=== PATIENT | female | born 1995 | race Caucasian/White ===

== ENCOUNTER → 2017-02-02 | Outpatient (CLI) | payer OTHER ==
[2017-02-02 14:50] LABS: CH 31.1; CHCM 33.5; HCT 27.8 % (34.0-46.0); HDW 3.49; HGB 9.2 gm/dL (11.4-16.0); MCH 30.8 pg (25.0-35.0); MCV 93.3 fL (80.0-100.0); Mean Platelet Volume 7.1; Poikilocytosis Slight; RBC 2.98 m/uL (3.80-5.40); RDW 14.3 % (11.5-15.5); WBC 9.7 k/uL (4.0-11.0)
[2017-02-02 16:17] LABS: Glucose 77 mg/dL (74-99); Non-African American GFR(MDRD) >60 (>60 ml/min/1.73 sqM)
[2017-02-02 16:49] LABS: Hepatitis B Surface Ag Index 0.08
[2017-02-03 07:57] LABS: HIV-1/HIV-2 Ab Screen NONREAC (NON REAC)
== END | disposition home or self-care (01) ==
LOC: LABWHC1 14:16
PROVIDERS: ATTEND Obstetrics & Gynecology
DX: Z34.00 Encounter for supervision of normal first pregnancy, unspecified trimester (principal); Z3A.00 Weeks of gestation of pregnancy not specified
CPT/HCPCS: 36415; 82565; 82947; 85027; 86762; 86780; 86850; 86900; 86901; 87340; 87389

== ENCOUNTER → 2017-04-06 | Outpatient (CLI) | payer OTHER ==
[2017-04-06 09:14] LABS: CH 29.1; CHCM 32.2; HCT 29.2 % (34.0-46.0); HDW 3.05; HGB 9.3 gm/dL (11.4-16.0); Hypochromasia Slight; MCHC 31.9 g/dL (31.0-37.0); MCV 90.9 fL (80.0-100.0); Mean Platelet Volume 8.8; RBC 3.21 m/uL (3.80-5.40); RDW 15.8 % (11.5-15.5)
== END | disposition home or self-care (01) ==
LOC: LABWHC1 07:51
PROVIDERS: ATTEND Obstetrics & Gynecology
DX: Z34.02 Encounter for supervision of normal first pregnancy, second trimester (principal)
CPT/HCPCS: 36415; 82950; 85027

== ENCOUNTER 2017-06-19 02:38 | Inpatient (IN) | payer OTHER ==
[2017-06-19] MEDS ORDERED: CARBOPROST TROMETHAMINE 250 MCG/ML 1 ML AMP IM PRN (03:08)
[2017-06-19] MEDS ORDERED: AMPICILLIN 2,000 MG in SODIUM CHLORIDE 0.9% 100 ML IVPB STA (03:08)
[2017-06-19] MEDS ORDERED: METHYLERGONOVINE 0.2 MG/ML 1 ML AMP IM PRN (03:08)
[2017-06-19] MEDS ORDERED: OXYTOCIN 10 UNIT/ML 1 ML VIAL IM PRN (03:08)
[2017-06-19] MEDS ORDERED: LIDOCAINE 1% (PF) 10 MG/ML (30 ML SDV) SQ PRN (03:08)
[2017-06-19] MEDS ORDERED: TERBUTALINE 1 MG/ML VIAL SQ PRN (03:08)
[2017-06-19] MEDS ORDERED: BUTORPHANOL 1 MG/ML 1 ML VIAL IV PRN (03:10)
[2017-06-19] MEDS ORDERED: OXYTOCIN 20 UNITS/1000 ML NS 1,000 ML IV SCH (03:15)
[2017-06-19] MEDS: LACTATED RINGERS 1,000 ML IV SCH ×3 (03:27→07:57)
[2017-06-19 03:35] LABS: Anisocytosis Slight; Basophils % (A) 0 %; CH 30.9; CHCM 33.5; Eosinophils # (A) 0.1 k/uL (0-0.7); Eosinophils % (A) 1 %; HCT 33.5 % (34.0-46.0); HDW 2.84; HGB 11.1 gm/dL (11.4-16.0); Luc # (Auto) 0.18; Luc % (Auto) 2; Lymphocytes # (A) 1.8 k/uL (1.0-4.8); Lymphocytes % (A) 19 %; MCH 30.8 pg (25.0-35.0); MCHC 33.1 g/dL (31.0-37.0); MCV 92.9 fL (80.0-100.0); Mean Platelet Volume 7.8; Monocytes # (A) 0.5 k/uL (0-1.0); Monocytes % (A) 6 %; Neutrophils # (A) 6.8 k/uL (1.3-7.7); Neutrophils % (A) 73 %; RDW 17.4 % (11.5-15.5); WBC 9.4 k/uL (3.8-10.6); WBC (Perox) 9.95
[2017-06-19] MEDS ORDERED: fentaNYL (PF) 50 MCG/ML 5 ML AMP ONE (07:29)
[2017-06-19] MEDS ORDERED: SODIUM CHLORIDE 0.9% 100 ML BAG ONE (07:29)
[2017-06-19] MEDS ORDERED: BUPIVACAINE (PF) 0.25% 30 ML VIAL ONE (07:29)
[2017-06-19] MEDS: AMPICILLIN 1,000 MG in SODIUM CHLORIDE 0.9% 50 ML IVPB SCH ×2 (07:51→16:42)
[2017-06-19] MEDS ORDERED: BUPIVACAINE (PF) 0.25% 25 ML, fentaNYL (PF) 200 MCG in SODIUM CHLORIDE 0.9% 71 ML EPIDURAL ONE (08:07)
--- NOTE | 2017-06-19 08:34 | P.HPOB ---
History of Present Illness H&P Date: 06/19/17 Chief Complaint: Labor 22-year-old presents at 39 weeks and 2 days in labor. She is lorrie every few minutes. Her cervix is 2-3 cm dilated, 80% effaced, -2 station. heart tones are 120-125 with moderate variability and reactive. Review of Systems All systems: negative Constitutional: Denies chills, Denies fever Eyes: denies blurred vision, denies pain Ears, nose, mouth and throat: Denies headache, Denies sore throat Cardiovascular: Denies chest pain, Denies shortness of breath Respiratory: Denies cough Gastrointestinal: Denies abdominal pain, Denies diarrhea, Denies nausea, Denies vomiting Genitourinary: Denies dysuria, Denies hematuria Musculoskeletal: Denies myalgias Integumentary: Denies pruritus, Denies rash Neurological: Denies numbness, Denies weakness Psychiatric: Denies anxiety, Denies depression Endocrine: Denies fatigue, Denies weight change Past Medical History Additional Past Medical History / Comment(s): SCOLIOSIS, HX OF PASSING OUT., OCCASIONAL DIZZINESS, STATES CURRENTLY ON IRON SUPPLEMENT FOR ANEMIA. OB history: THis is her first and she has had care with me since 18 weeks. O+, abs neg, Rub Imm, Treponemal ab neg, HIV NR, Hep B neg, normal 1hr GTT, GBS +. History of Any Multi-Drug Resistant Organisms: None Reported Past Surgical History: No Surgical Hx Reported Past Anesthesia/Blood Transfusion Reactions: No Reported Reaction Additional Past Anesthesia/Blood Transfusion Reaction / Comment(s): has not ever had anesthesia Past Psychological History: ADD/ADHD, Depression Additional Psychological History / Comment(s): NO MEDS WHILE Smoking Status: Never smoker Past Alcohol Use History: None Reported Past Drug Use History: None Reported - Past Family History Mother Family Medical History: No Reported History Medications and Allergies Home Medications Medication Instructions Recorded Confirmed Type Pnv No.95/Ferrous Fum/Folic AC 1 each PO DAILY 06/14/17 06/19/17 History [ Multivitamin Tablet] Allergies Allergy/AdvReac Type Severity Reaction Status Date / Time No Known Allergies Allergy Verified 06/19/17 02:49 Exam Osteopathic Statement: *. No significant issues noted on an osteopathic structural exam other than those noted in the History and Physical/Consult. - Vital Signs Vital signs: Vital Signs Temp Pulse Resp BP 06/19/17 02:49 98.3 F 73 16 118/71 Intake and Output 06/18/17 06/19/17 06/19/17 22:59 06:59 14:59 Other: # Voids 1 Weight 105.233 kg Heart: Regular rate and rhythm Lungs: Clear to auscultation bilaterally Abdomen: Soft, nontender Extremities: Negative Homans sign Results Result Diagrams: 06/19/17 03:30 Abnormal Lab Results - Last 24 Hours (Table) 06/19/17 Range/Units 03:30 RBC 3.60 L (3.80-5.40) m/uL Hgb 11.1 L (11.4-16.0) gm/dL Hct 33.5 L (34.0-46.0) % RDW 17.4 H (11.5-15.5) % Assessment and Plan (1) Normal labor Status: Acute Plan: 1. Admit to labor and delivery 2. Ampicillin for GBS prophylaxis 3. Anticipate normal vaginal delivery
[2017-06-19] MEDS ORDERED: diphenhydrAMINE 50 MG CAP PO PRN (16:34)
[2017-06-19] MEDS ORDERED: ACETAMINOPHEN TAB 325 MG TAB PO PRN (16:34)
[2017-06-19] MEDS ORDERED: WITCH HAZEL 1 EACH MED..PAD TOPICAL PRN (16:34)
[2017-06-19] MEDS ORDERED: SIMETHICONE 80 MG CHEWABLE PO PRN (16:34)
[2017-06-19] MEDS ORDERED: Acetaminophen-Codeine 300-30mg TAB PO PRN ×2 (16:34)
[2017-06-19] MEDS ORDERED: IBUPROFEN 600 MG TAB PO PRN (16:34)
[2017-06-19] MEDS ORDERED: LANOLIN CREAM 5 GM TUBE TOPICAL PRN (16:34)
[2017-06-19] MEDS ORDERED: HYDROCORTISONE 2.5% RECTAL CREAM 30 GM TUBE RECTAL PRN (16:34)
[2017-06-19] MEDS ORDERED: ZOLPIDEM 5 MG TAB PO PRN (16:34)
[2017-06-19] MEDS ORDERED: BENZOCAINE/MENTHOL SPRAY 1 GM/SPRAY AEROSOL TOPICAL PRN (16:34)
[2017-06-19] MEDS ORDERED: diphenhydrAMINE 25 MG CAP PO PRN (16:34)
[2017-06-19] MEDS: SENNOSIDES-DOCUSATE SODIUM 1 EACH TAB PO SCH (20:13)
--- NOTE | 2017-06-20 05:52 | P.PROBDLV ---
Vaginal Delivery Note - . Vaginal Delivery Note: 22-year-old presented at 39 weeks and 2 days in labor. Her cervix was 2 cm dilated, 80% effaced, -2 station. She is lorrie irregularly every 2-4 minutes. heart tones 135-140 with moderate variability and reactive. Amniotomy was performed at 8 AM and thin meconium was noted. She was comfortable with an epidural at this time and 6 cm dilated. She progressed to complete at 8:58 AM. She then pushed, and delivered a viable female over intact perineum under epidural anesthesia at 9:16 AM. Head delivered OA, nuchal cord 1 easily reduced, anterior shoulder delivered gentle downward Rafael by posterior shoulder and rest of body. Nose and mouth bulb suctioned, cord clamped and cut, infant placed mother's abdomen. Apgars 8, 8, weight 8 pounds. Placenta delivered spontaneously, intact with three-vessel cord. The, perineum, cervix was inspected. First-degree perineal and left labial laceration were repaired with 3-0 Vicryl. Estimated blood loss 200 mL. Mother and baby in stable condition.
--- NOTE | 2017-06-20 06:43 | P.DS ---
Providers Date of admission: 06/19/17 02:38 Expected date of discharge: 06/20/17 Attending physician: Maria E Chao Primary care physician: Stated None - Discharge Diagnosis(es) (1) Normal labor Current Visit: Yes Status: Resolved (2) Normal vaginal delivery Current Visit: Yes Status: Acute Hospital Course: Pt presented in active labor. She underwent a normal vaginal delivery. Post course was uncomplicated. She will be discharged home PPD #1 in stable condition to follow up with me in 6 weeks. Plan - Discharge Summary New Discharge Prescriptions: New Ibuprofen [Motrin] 600 mg PO Q6HR PRN #30 tab PRN Reason: Mild Pain Or Fever >= 100.5 No Action Pnv No.95/Ferrous Fum/Folic AC [ Multivitamin Tablet] 1 each PO DAILY Discharge Medication List Pnv No.95/Ferrous Fum/Folic AC [ Multivitamin Tablet] 1 each PO DAILY [History] Ibuprofen [Motrin] 600 mg PO Q6HR PRN #30 tab 06/20/17 [Rx] Follow up Appointment(s)/Referral(s): Maria E Chao DO [Doctor of Osteopathic Medicine] - 6 Weeks Discharge Disposition: HOME SELF-CARE
[2017-06-20 08:26] VITALS: BP 103/63; PULSE 83; RESP 18; TEMP 98.6
[2017-06-20] MEDS: SENNOSIDES-DOCUSATE SODIUM 1 EACH TAB PO SCH (09:41)
== END 2017-06-20 13:45 | disposition home or self-care (01) | DRG 560 ==
LOC: 4FBP 02:38
PROVIDERS: ADMIT Obstetrics & Gynecology; ATTEND Obstetrics & Gynecology
DX: O99.824 Streptococcus B carrier state complicating childbirth (principal); M41.9 Scoliosis, unspecified; O77.0 Labor and delivery complicated by meconium in amniotic fluid; O70.0 First degree perineal laceration during delivery; F32.9 Major depressive disorder, single episode, unspecified; D64.9 Anemia, unspecified; O99.02 Anemia complicating childbirth; Z37.0 Single live birth; Z3A.39 39 weeks gestation of pregnancy; O69.81X0 Labor and delivery complicated by cord around neck, without compression, not applicable or unspecified; O99.344 Other mental disorders complicating childbirth; F90.9 Attention-deficit hyperactivity disorder, unspecified type; Z79.899 Other long term (current) drug therapy
CPT/HCPCS: 85025; 88307

== ENCOUNTER → 2017-11-07 | Outpatient (CLI) | payer OTHER ==
[2017-11-07 10:41] LABS: Basophils % (A) 0 %; Eosinophils # (A) 0.1 k/uL (0-0.7); Eosinophils % (A) 2 %; HCT 36.2 % (34.0-46.0); HGB 11.7 gm/dL (11.4-16.0); Lymphocytes # (A) 1.5 k/uL (1.0-4.8); Lymphocytes % (A) 34 %; MCH 28.3 pg (25.0-35.0); MCHC 32.5 g/dL (31.0-37.0); Mean Platelet Volume 8.6; Monocytes # (A) 0.3 k/uL (0-1.0); Monocytes % (A) 7 %; Neutrophils # (A) 2.4 k/uL (1.3-7.7); Neutrophils % (A) 55 %; Platelet Count 183 k/uL (150-450); RBC 4.15 m/uL (3.80-5.40); RDW 14.7 % (11.5-15.5); WBC 4.3 k/uL (3.8-10.6)
[2017-11-07 11:34] LABS: ALT 21 U/L (9-52); AST 13 U/L (14-36); Albumin 4.3 g/dL (3.5-5.0); Alkaline Phosphatase 57 U/L (38-126); Anion Gap 11 mmol/L; Blood Urea Nitrogen 13 mg/dL (7-17); Calcium 9.5 mg/dL (8.4-10.2); Carbon Dioxide 27 mmol/L (22-30); Chloride 105 mmol/L (98-107); Glucose 88 mg/dL (74-99); Potassium 4.4 mmol/L (3.5-5.1); Sodium 143 mmol/L (137-145); Total Bilirubin 0.3 mg/dL (0.2-1.3); Total Protein 7.1 g/dL (6.3-8.2)
[2017-11-07 11:36] LABS: T4, Free (Free Thyroxine) 0.69 ng/dL (0.78-2.19)
[2017-11-07 16:45] LABS: Iron Saturation 21.34 (12.00-45.00)
[2017-11-08 02:59] LABS: EBV - EA (IgG) <5.0 U/mL (<9.0); EBV - VCA IgM <10.0 U/mL (<36.0)
== END | disposition home or self-care (01) ==
LOC: LABWHC1 10:02
PROVIDERS: ATTEND Family Medicine
DX: R53.83 Other fatigue (principal)
CPT/HCPCS: 36415; 80053; 82306; 82607; 82728; 83540; 83550; 84439; 84443; 85025; 86663; 86664; 86665

== ENCOUNTER → 2022-05-12 | Outpatient (CLI) | payer OTHER ==
--- NOTE | 2022-05-12 17:05 | US ---
EXAMINATION TYPE: Transabdominal DATE OF EXAM: 05/12/2022 4:35 PM COMPARISON: NONE CLINICAL HISTORY: Z36.89 CONFIRM GESTATIONAL AGE. EXAM PERFORMED: Transabdominal (TA) EXAM MEASUREMENTS: GESTATIONAL AGE / DATING Physician Established: Not yet established Dates by LMP: LMP unknown Dates by First Scan: not done at this facility Dates by Current Scan for: (11 weeks/6 days) EDC: 11-25-22 MATERNAL ANATOMY Uterus: 12.8 x 7.3 x 9.4cm Right Ovary: 2.5 x x 1.8cm Left Ovary: 2.1 x 2.4 x 2.6cm Post CDS / Adnexa: wnl Presence of free fluid: no Probable subchorionic bleed measuring 1.4 x 0.4 x 0.4 GESTATION / SURVEY CRL: 5.0cm (11 weeks/6 days) Yolk Sac (normal less than 6mm): not seen Heart Rate: 156 bpm Rhythm: normal IUP: viable Age Appropriate Anatomy Cord Insertion: Visualized Limbs: Visualized Calvarium: Visualized Date of LMP: unknown IMPRESSION: 1. Single live intrauterine gestation with ultrasound age of 11 weeks and 6 days by crown-rump lengt h. Additional details as described above. 2. Small subchorionic bleed.
== END | disposition home or self-care (01) ==
LOC: RADUSWWP 16:11
PROVIDERS: ATTEND Obstetrics & Gynecology
DX: Z36.89 Encounter for other specified antenatal screening (principal); O20.8 Other hemorrhage in early pregnancy; Z3A.11 11 weeks gestation of pregnancy
CPT/HCPCS: 76801

== ENCOUNTER 2022-11-14 21:17 | Outpatient (CLI) | payer OTHER ==
[2022-11-14 22:07] LABS: Appearance,Urine Cloudy (Clear); Bacteria,Urine Occasional /hpf; Bilirubin,Urine Negative (Negative); Blood,Urine Negative (Negative); Color,Urine Yellow; Glucose,Urine (UA) Negative (Negative); Hyaline Casts,Urine 1 /lpf (0-2); Ketones,Urine Trace (Negative); Leukocyte Esterase,Urine Large (Negative); Mucus,Urine Moderate /hpf; Nitrite,Urine Positive (Negative); Protein,Urine Trace (Negative); RBC,Urine 1 /hpf (0-5); Specific Gravity,Urine 1.018 (1.001-1.035); Squamous Epithelial Cell,Urine 7 /hpf (0-4); Urobilinogen,Urine <2.0 mg/dL (<2.0); WBC,Urine 179 /hpf (0-5)
[2022-11-14] MEDS ORDERED: LACTATED RINGERS 1,000 ML IV SCH (23:15)
[2022-11-15 00:02] VITALS: BP 108/64; PULSE 102; RESP 16; TEMP 97.5
--- NOTE | 2022-11-20 23:19 | P.MSEPDOC ---
Presenting Problems - Arrival Data Date of Arrival on Unit: 11/14/22 Time of Arrival on Unit: 21:17 Mode of Transport: Ambulatory - Complaint OB-Reason for Admission/Chief Complaint: Acute Nausea/Vomiting Comment: Patient presents to triage stating that she has been nauseated all day, states that she had a low grade fever earlier and just felt off today. States she has noted movement, but less than normal. States that she started to cramp this evening and noted some back pain as well so wanted to come in to get checked out. Medical History - Information : 1 Para: 1 Term: 1 : 0 Abortions: Spontaneous or Elective: 0 Number of Living Children: 1 - Gestational Age Gestational Age by MENA (wks/days): 37 Weeks and 6 Days Review of Systems - Review of Systems Constitutional: No problems Breast: No problems ENT: No problems Cardiovascular: No problems Respiratory: No problems Gastrointestinal: No problems Genitourinary: No problems Musculoskeletal: No problems Neurological: No problems Skin: No problems Vital Signs - Temperature Temperature: 97.5 F Temperature Source: Temporal Artery Scan - Pulse Pulse Oximetery Pulse Rate: 102 Pulse Assessment Method: Pulse Oximetry - Respirations Respiratory Rate: 16 Oxygen Delivery Method: Room Air O2 Sat by Pulse Oximetry: 98 - Blood Pressure Sitting Blood Pressure: 108/64 Blood Pressure Mean: 78 Blood Pressure Source: Automatic Cuff Medical Screen Scoring - Cervical Exam Dilation (cm): 3.5 Effacement (%): 50 Station: -2 Membranes: Intact - Uterine Contractions Frequency From (mins): 1 Frequency To (mins): 5 Duration From (seconds): 40 Duration To (seconds): 60 Resting: Soft to palpation - Assessment - Baby A Baseline FHR: 125 Heart Rate - NICHD Category: Category I (Normal) NST: Reactive Physician Notification - Physician Notified Physician Notified Date: 11/14/22 Physician Notified Time: 21:31 Physician: Ese Seth Order Received: Yes - Notification Comment Comment: Physician states to collect and send a UA. [id number] Physician states to initiate iv access, IV hydrate patient and administer kefzol 2gm ivpb one time dose, after infusion okay to discharge patient home with instructions and patient to keep regularly scheduled appt for tomorrow am with Dr. Chao. Maternal Triage Index - Non-Urgent/Priority 4 Non-Urgent Priority 4: Yes Criteria Met for Priority 4: Patient present to triage with nausea, back pain and states she had a low grade fever earlier today Disposition - Disposition OB Disposition: Discharge to home Discharge Date: 11/15/22 Discharge Time: 23:56 I agree with the RN Medical Screening Exam: Yes Case reviewed; plan agreed upon as documented in EMR&OBIX.: Yes Diagnosis: URINARY TRACT INFECTION, SITE NOT SPECIFIED
== END 2022-11-14 23:56 | disposition home or self-care (01) ==
LOC: FBPOP 21:17
PROVIDERS: ATTEND Obstetrics & Gynecology
DX: O23.43 Unspecified infection of urinary tract in pregnancy, third trimester (principal); Z3A.37 37 weeks gestation of pregnancy
CPT/HCPCS: 59025; 96361; 96365; 81001; 87086; 87077; 87186; G0463; J0690; 99214

== ENCOUNTER 2022-11-21 16:58 | Inpatient (IN) | payer OTHER ==
[2022-11-21] MEDS ORDERED: OXYTOCIN 10 UNIT/ML 1 ML VIAL IM PRN (17:25)
[2022-11-21] MEDS ORDERED: LIDOCAINE 0.5% (PF) 5 MG/ML (50 ML SDV) SQ PRN (17:25)
[2022-11-21] MEDS ORDERED: METHYLERGONOVINE 0.2 MG/ML 1 ML AMP IM PRN (17:25)
[2022-11-21] MEDS ORDERED: TERBUTALINE 1 MG/ML VIAL SQ PRN (17:25)
[2022-11-21] MEDS ORDERED: CARBOPROST TROMETHAMINE 250 MCG/ML 1 ML AMP IM PRN (17:25)
[2022-11-21] MEDS ORDERED: TRANEXAMIC ACID IN NACL,ISO-OS 1,000 MG in EMPTY BAG 1 BAG IV PRN (17:25)
[2022-11-21] MEDS ORDERED: miSOPROStoL 200 MCG TAB PO PRN (17:25)
[2022-11-21] MEDS ORDERED: OXYTOCIN 30 UNITS/500 ML NS 30 UNIT in SALINE 1 500ML.BAG IV SCH ×2 (17:30→19:30)
[2022-11-21] MEDS: LACTATED RINGERS 1,000 ML IV SCH ×2 (17:54→18:14)
[2022-11-21 18:01] LABS: Basophils % (A) 0 %; Eosinophils # (A) 0.1 k/uL (0-0.7); Eosinophils % (A) 1 %; HCT 32.1 % (34.0-46.0); HGB 10.7 gm/dL (11.4-16.0); Lymphocytes # (A) 1.6 k/uL (1.0-4.8); Lymphocytes % (A) 16 %; MCH 29.4 pg (25.0-35.0); MCHC 33.4 g/dL (31.0-37.0); Mean Platelet Volume 7.5; Monocytes # (A) 0.5 k/uL (0-1.0); Monocytes % (A) 5 %; Neutrophils # (A) 7.8 k/uL (1.3-7.7); Neutrophils % (A) 77 %; Platelet Count 205 k/uL (150-450); Poikilocytosis Slight; RBC 3.65 m/uL (3.80-5.40); RDW 15.1 % (11.5-15.5); WBC 10.1 k/uL (3.8-10.6)
[2022-11-21] MEDS ORDERED: SODIUM CHLORIDE 0.9% 100 ML BAG ONE (18:18)
[2022-11-21] MEDS ORDERED: fentaNYL (PF) 50 MCG/ML 5 ML AMP ONE (18:18)
[2022-11-21] MEDS ORDERED: ROPIVACAINE 5 MG/ML 20 ML AMPULE ONE (18:18)
--- NOTE | 2022-11-21 18:49 | P.HPOB ---
History of Present Illness H&P Date: 11/21/22 Chief Complaint: labor 27 year old presents at 38 weeks 6 days in active labor. Her cervix is 6/80/-2. She is lorrie every 2-5 minutes. heart tones 140 with mo derate variability and reactive. Review of Systems All systems: negative Constitutional: Denies chills, Denies fever Eyes: denies blurred vision, denies pain Ears, nose, mouth and throat: Denies headache, Denies sore throat Cardiovascular: Denies chest pain, Denies shortness of breath Respiratory: Denies cough Gastrointestinal: Denies abdominal pain, Denies diarrhea, Denies nausea, Denies vomiting Genitourinary: Denies dysuria, Denies hematuria Musculoskeletal: Denies myalgias Integumentary: Denies pruritus, Denies rash Neurological: Denies numbness, Denies weakness Psychiatric: Denies anxiety, Denies depression Endocrine: Denies fatigue, Denies weight change Past Medical History Additional Past Medical History / Comment(s): SCOLIOSIS, HX OF PASSING OUT., OCCASIONAL DIZZINESS, STATES CURRENTLY ON IRON SUPPLEMENT FOR ANEMIA. History of Any Multi-Drug Resistant Organisms: None Reported Past Surgical History: No Surgical Hx Reported Additional Past Surgical History / Comment(s): removal of left fallopian tube during current 04/24 Past Anesthesia/Blood Transfusion Reactions: No Reported Reaction Additional Past Anesthesia/Blood Transfusion Reaction / Comment(s): has not ever had anesthesia Past Psychological History: ADD/ADHD, Depression Smoking Status: Never smoker Past Alcohol Use History: None Reported Past Drug Use History: None Reported - Past Family History Mother Family Medical History: No Reported History Sister(s) Family Medical History: Cancer Additional Family Medical History / Comment(s): thyroid cancer Medications and Allergies Home Medications Medication Instructions Recorded Confirmed Type Pnv No.95/Ferrous Fum/Folic AC 1 each PO DAILY 06/14/17 11/21/22 History [ Multivitamin Tablet] Cephalexin [Keflex] 500 mg PO Q6HR 11/21/22 11/21/22 History Allergies Allergy/AdvReac Type Severity Reaction Status Date / Time No Known Allergies Allergy Verified 11/21/22 18:21 Exam Osteopathic Statement: *. No significant issues noted on an osteopathic structural exam other than those noted in the History and Physical/Consult. Vital Signs Temp Pulse Resp BP Pulse Ox 11/21/22 17:54 96.9 F L 85 16 116/73 99 Intake and Output 11/21/22 11/21/22 11/21/22 06:59 14:59 22:59 Other: Weight 124.738 kg HEart: RRR Lungs: CTAB Abdomen: soft, nontender Extremeties: neg phani's, 2+ edema in BLLE Results Result Diagrams: 11/21/22 17:48 Abnormal Lab Results - Last 24 Hours (Table) 11/21/22 Range/Units 17:48 RBC 3.65 L (3.80-5.40) m/uL Hgb 10.7 L (11.4-16.0) gm/dL Hct 32.1 L (34.0-46.0) % Neutrophils # 7.8 H (1.3-7.7) k/uL Assessment and Plan (1) Normal labor Current Visit: No Status: Resolved Code(s): O80 - ENCOUNTER FOR FULL-TERM UNCOMPLICATED DELIVERY; Z37.9 - OUTCOME OF DELIVERY, UNSPECIFIED SNOMED Code(s): 35177162 Plan: 1. admit to [facility] 2. anticipate normal vaginal delivery.
[2022-11-21] MEDS ORDERED: diphenhydrAMINE 25 MG CAP PO PRN (19:29)
[2022-11-21] MEDS ORDERED: ACETAMINOPHEN TAB 325 MG TAB PO PRN (19:29)
[2022-11-21] MEDS ORDERED: diphenhydrAMINE 50 MG/ML 1 ML VIAL IVP PRN ×2 (19:29)
[2022-11-21] MEDS ORDERED: SIMETHICONE 80 MG CHEWABLE PO PRN (19:29)
[2022-11-21] MEDS ORDERED: LANOLIN CREAM 5 GM TUBE TOPICAL PRN (19:29)
[2022-11-21] MEDS ORDERED: ZOLPIDEM 5 MG TAB PO PRN (19:29)
[2022-11-21] MEDS ORDERED: BENZOCAINE/MENTHOL SPRAY 1 GM/SPRAY AEROSOL TOPICAL PRN (19:29)
[2022-11-21] MEDS ORDERED: diphenhydrAMINE 50 MG CAP PO PRN (19:29)
[2022-11-21] MEDS ORDERED: HYDROCORTISONE 2.5% RECTAL CREAM 30 GM TUBE RECTAL PRN (19:29)
--- NOTE | 2022-11-21 19:32 | P.MSEPDOC ---
Presenting Problems - Arrival Data Date of Arrival on Unit: 11/21/22 Time of Arrival on Unit: 16:58 Mode of Transport: Ambulatory - Complaint OB-Reason for Admission/Chief Complaint: Possible Onset of Labor Medical History - Information : 2 Para: 1 Term: 1 : 0 Abortions: Spontaneous or Elective: 0 Number of Living Children: 1 - Gestational Age Gestational Age by MENA (wks/days): 38 Weeks and 6 Days Review of Systems - Review of Systems Constitutional: No problems Breast: No problems ENT: No problems Cardiovascular: No problems Respiratory: No problems Gastrointestinal: No problems Genitourinary: No problems Musculoskeletal: No problems Neurological: No problems Skin: No problems Vital Signs - Temperature Temperature: 96.9 F Temperature Source: Temporal Artery Scan - Pulse Right Sitting Pulse Rate: 85 Pulse Assessment Method: Automatic Cuff - Respirations Respiratory Rate: 16 Oxygen Delivery Method: Room Air O2 Sat by Pulse Oximetry: 99 - Blood Pressure Right Arm Blood Pressure: 116/73 Blood Pressure Mean: 87 Blood Pressure Source: Automatic Cuff Medical Screen Scoring - Cervical Exam Dilation (cm): 6 Effacement (%): 90 Station: -1 Membranes: Intact - Uterine Contractions Frequency From (mins): 3 Frequency To (mins): 4 Duration From (seconds): 30 Duration To (seconds): 60 Intensity: Strong Resting: Soft to palpation - Assessment - Baby A Baseline FHR: 135 Heart Rate - NICHD Category: Category I (Normal) NST: Reactive Physician Notification - Physician Notified Physician Notified Date: 11/21/22 Physician Notified Time: 17:21 Physician: Maria E Chao New Order Received: Yes (admit) Maternal Triage Index - Non-Urgent/Priority 4 Non-Urgent Priority 4: Yes Criteria Met for Priority 4: 6cm/90%/-1, reacctive nst Disposition - Disposition OB Disposition: Admit, LDRP Suite I agree with the RN Medical Screening Exam: Yes Case reviewed; plan agreed upon as documented in EMR&OBIX.: Yes Diagnosis: ENCOUNTER FOR FULL-TERM UNCOMPLICATED DELIVERY
--- NOTE | 2022-11-21 19:32 | P.PROBDLV ---
Vaginal Delivery Note - . Vaginal Delivery Note: 27 year old presents at 38 weeks 6 days in active labor. Her cervix is 6/80/-2. She is lorrie every 2-5 minutes. heart tones 140 with moderate variability and reactive. Patient was admitted to [facility] and got an epidural for pain management. Amniotomy performed at 185. Patient was completely dilated by 191. She pushed, delivered a viable male infant over intact perineum under epidural anesthesia at 191. Head delivered OA, nuchal co rd 1 easily reduced, anterior shoulder delivered gentle downward guidance followed by posterior shoulder and rest of body. Nose and mouth bulb suctioned, cord clamped and cut, infant placed mother's abdomen. Apgars 7, 9, weight 9 lbs. 7 oz. Placenta delivered spontaneously, intact with three-vessel cord at 1914. Vagina, cervix, and perineum were inspected. First-degree midline laceration was repaired with 3-0 Vicryl. Estimated blood loss 250 mL. Mother and baby in stable condition.
[2022-11-22] MEDS: SENNOSIDES-DOCUSATE SODIUM 1 EACH TAB PO SCH ×3 (02:37→20:33)
[2022-11-22] MEDS: IBUPROFEN 600 MG TAB PO PRN ×4 (02:54→20:33)
--- NOTE | 2022-11-22 08:30 | P.PNOBGVD ---
Subjective - Subjective Principal diagnosis: S/P NVD PPD #1 Interval history: Patient seen and examined. Denies nausea, vomiting, chest pain, shortness of breath or calf pain. Patient reports: Reports appetite normal, Reports voiding normally, Reports pain well controlled, Reports ambulating normally : doing well Objective - Latest Vital Signs Latest vital signs: Vital Signs Temp Pulse Resp BP Pulse Ox 11/22/22 04:00 98.0 F 80 16 100/55 100 11/22/22 00:00 98.5 F 86 16 103/60 98 11/21/22 21:30 98.0 F 81 16 105/55 98 11/21/22 21:00 78 16 105/55 11/21/22 20:30 81 16 98/62 11/21/22 20:15 83 16 108/52 11/21/22 20:00 78 16 105/61 11/21/22 19:45 80 16 115/68 11/21/22 19:32 96.9 F L 85 16 116/73 99 11/21/22 19:30 97.9 F 75 16 112/76 11/21/22 17:54 96.9 F L 85 16 116/73 99 11/21/22 17:21 96.9 F L 85 16 116/73 Intake and Output 11/21/22 11/22/22 11/22/22 22:59 06:59 14:59 Output Total 440 Balance -440 Output: Estimated Blood Loss 250 Output, Quantitative 190 Blood Loss Other: # Voids 1 1 Weight 124.738 kg - Exam Lungs: bilateral: normal Chest: Normal S1, Normal S2 Extremities: Present: normal Abdomen: Present: normal appearance, soft Uterus: Present: normal, firm - Labs Labs: Abnormal Lab Results - Last 24 Hours (Table) 11/21/22 Range/Units 17:48 RBC 3.65 L (3.80-5.40) m/uL Hgb 10.7 L (11.4-16.0) gm/dL Hct 32.1 L (34.0-46.0) % Neutrophils # 7.8 H (1.3-7.7) k/uL Assessment and Plan (1) Normal labor Current Visit: No Status: Resolved Code(s): O80 - ENCOUNTER FOR FULL-TERM UNCOMPLICATED DELIVERY; Z37.9 - OUTCOME OF DELIVERY, UNSPECIFIED SNOMED Code(s): 07028371 (2) Normal vaginal delivery Current Visit: No Status: Acute Code(s): O80 - ENCOUNTER FOR FULL-TERM UNCOMPLICATED DELIVERY SNOMED Code(s): 59882884 Plan: 1. Continue care possible discharge later today
[2022-11-22 08:42] LABS: Basophils % (A) 0 %; Eosinophils # (A) 0.1 k/uL (0-0.7); Eosinophils % (A) 1 %; HCT 27.2 % (34.0-46.0); Lymphocytes # (A) 1.9 k/uL (1.0-4.8); Lymphocytes % (A) 21 %; MCH 29.1 pg (25.0-35.0); MCHC 33.3 g/dL (31.0-37.0); MCV 87.5 fL (80.0-100.0); Monocytes # (A) 0.5 k/uL (0-1.0); Monocytes % (A) 5 %; Neutrophils # (A) 6.5 k/uL (1.3-7.7); Neutrophils % (A) 70 %; Platelet Count 190 k/uL (150-450); Poikilocytosis Slight; RDW 15.4 % (11.5-15.5); WBC 9.2 k/uL (3.8-10.6)
[2022-11-23] MEDS: IBUPROFEN 600 MG TAB PO PRN ×2 (02:50→08:48)
[2022-11-23] MEDS: SENNOSIDES-DOCUSATE SODIUM 1 EACH TAB PO SCH (08:48)
--- NOTE | 2022-11-23 09:17 | P.DS ---
Providers Date of admission: 11/21/22 17:33 Expected date of discharge: 11/23/22 Attending physician: Maria E Chao Primary care physician: Maria E Chao - Discharge Diagnosis(es) (1) Normal labor Current Visit: No Status: Resolved (2) Normal vaginal delivery Current Visit: No Status: Acute Hospital Course: Patient presented in active labor. She underwent a normal vaginal delivery. course was uneventful. She denies nausea, vomiting, chest pain, sugars of breath or calf pain. The patient has a history of depression spinal starting her on Zoloft 50 mg. Patient will be discharged home post day #2 in stable condition to follow-up with me in 2 weeks. Plan - Discharge Summary New Discharge Prescriptions: New Ibuprofen [Motrin] 600 mg PO Q6HR PRN #30 tab PRN Reason: Mild Pain (Scale 1 To 3) Sertraline [Zoloft] 50 mg PO DAILY #30 tab No Action Pnv No.95/Ferrous Fum/Folic AC [ Multivitamin Tablet] 1 each PO DAILY Cephalexin [Keflex] 500 mg PO Q6HR Discharge Medication List Pnv No.95/Ferrous Fum/Folic AC [ Multivitamin Tablet] 1 each PO DAILY 06/14/17 [History] Cephalexin [Keflex] 500 mg PO Q6HR 11/21/22 [History] Ibuprofen [Motrin] 600 mg PO Q6HR PRN #30 tab 11/22/22 [Rx] Sertraline [Zoloft] 50 mg PO DAILY #30 tab 11/23/22 [Rx] Follow up Appointment(s)/Referral(s): Maria E Chao DO [Primary Care Provider] - 01/01/23 3:45 pm Discharge Disposition: HOME SELF-CARE
[2022-11-23] MEDS ORDERED: SERTRALINE 50 MG TAB PO SCH (09:30)
[2022-11-23 15:36] VITALS: BP 108/63; PULSE 77; RESP 17; TEMP 98.1
== END 2022-11-23 16:15 | disposition home or self-care (01) | DRG 560 ==
LOC: FBPOP 16:58 → 4FBP 17:33
PROVIDERS: ADMIT Obstetrics & Gynecology; ATTEND Obstetrics & Gynecology
PROC: 10E0XZZ Delivery of Products of Conception, External Approach (ICD-10-PCS; principal; 2022-11-21)
PROC: 0HQ9XZZ Repair Perineum Skin, External Approach (ICD-10-PCS; 2022-11-21)
PROC: 3E0R3BZ Introduction of Anesthetic Agent into Spinal Canal, Percutaneous Approach (ICD-10-PCS; 2022-11-21)
DX: O99.02 Anemia complicating childbirth (principal); Z37.0 Single live birth; O99.345 Other mental disorders complicating the puerperium; D64.9 Anemia, unspecified; Z3A.38 38 weeks gestation of pregnancy; M41.9 Scoliosis, unspecified; O69.81X0 Labor and delivery complicated by cord around neck, without compression, not applicable or unspecified; O70.0 First degree perineal laceration during delivery; F53.0 Postpartum depression
CPT/HCPCS: 59025; 85025; 86850; 86900; 86901; 99213

== ENCOUNTER 2024-04-27 20:44 | Outpatient (CLI) | payer OTHER ==
[2024-04-27 22:37] LABS: Appearance,Urine Cloudy (Clear); Bacteria,Urine Rare /hpf; Bilirubin,Urine Negative (Negative); Blood,Urine Negative (Negative); Budding Yeast,Urine Rare /hpf; Color,Urine Colorless; Glucose,Urine (UA) Negative (Negative); Ketones,Urine 2+ (Negative); Leukocyte Esterase,Urine Moderate (Negative); Mucus,Urine Rare /hpf; Nitrite,Urine Negative (Negative); PH, Urine 5.5 (5.0-8.0); Protein,Urine Negative (Negative); RBC,Urine 3 /hpf (0-5); Specific Gravity,Urine 1.023 (1.001-1.035); Squamous Epithelial Cell,Urine 8 /hpf (0-4); Uric Acid Crystals,Urine Occasional /hpf; Urobilinogen,Urine <2.0 mg/dL (<2.0); WBC,Urine 26 /hpf (0-5)
[2024-04-27 23:28] VITALS: BP 129/78; PULSE 100; RESP 18; TEMP 96.7
--- NOTE | 2024-05-16 09:13 | P.MSEPDOC ---
Presenting Problems - Arrival Data Date of Arrival on Unit: 04/27/24 Time of Arrival on Unit: 20:44 Mode of Transport: Wheelchair - Complaint OB-Reason for Admission/Chief Complaint: Acute Nausea/Vomiting, Pain Comment: Patient came in with complaints of back pain that radiates around front. Also has some nausea and vomiting due to pain. Medical History - Information : 3 Para: 2 Term: 2 : 0 Abortions: Spontaneous or Elective: 0 Number of Living Children: 2 - Gestational Age Gestational Age by MENA (wks/days): 29 Weeks and 1 Days Review of Systems - Review of Systems Constitutional: No problems Breast: No problems ENT: No problems Cardiovascular: No problems Respiratory: No problems Gastrointestinal: No problems Genitourinary: No problems Musculoskeletal: No problems Neurological: No problems Skin: No problems Vital Signs - Temperature Temperature: 96.7 F Temperature Source: Temporal Artery Scan - Pulse Pulse Oximetery Pulse Rate: 100 Pulse Assessment Method: Pulse Oximetry - Respirations Respiratory Rate: 18 Oxygen Delivery Method: Room Air O2 Sat by Pulse Oximetry: 100 - Blood Pressure Right Arm Blood Pressure: 129/78 Blood Pressure Mean: 95 Blood Pressure Source: Automatic Cuff Medical Screen Scoring - Uterine Contractions Resting: Soft to palpation - Assessment - Baby A Baseline FHR: 150 Heart Rate - NICHD Category: Category I (Normal) NST: Reactive Physician Notification - Physician Notified Physician Notified Date: 04/27/24 Physician Notified Time: 22:55 Physician: Richard Pacheco Order Received: Yes (D/C home) Maternal Triage Index - Maternal Triage Index Presenting for scheduled procedure w/no complaint: No - Stat/Priority 1 Stat Priority 1: No - Urgent/Priority 2 Urgent Priority 2: No - Prompt/Priority 3 Prompt Priority 3: No - Non-Urgent/Priority 4 Non-Urgent Priority 4: Yes Criteria Met for Priority 4: Patient came in with complaints of back pain that radiates around front. Disposition - Disposition OB Disposition: Discharge to home Discharge Date: 04/27/24 Discharge Time: 23:11 I agree with the RN Medical Screening Exam: Yes Physician's MSE Comment: I have neither seen nor examined the patient. Case reviewed; plan agreed upon as documented in EMR&OBIX.: Yes Diagnosis: RELATED CONDITIONS, UNSPECIFIED, THIRD TRIMESTER
== END 2024-04-27 23:11 | disposition home or self-care (01) ==
LOC: FBPOP 20:44
PROVIDERS: ATTEND Obstetrics & Gynecology
CPT/HCPCS: 59025; 81001; 99213

== ENCOUNTER 2024-07-10 04:27 | Inpatient (IN) | payer OTHER ==
[2024-07-10] MEDS ORDERED: TRANEXAMIC 1,000 MG/100ML-NACL 1,000 MG in EMPTY BAG 1 BAG IV PRN (04:47)
[2024-07-10] MEDS ORDERED: TERBUTALINE 1 MG/ML VIAL SQ PRN (04:47)
[2024-07-10] MEDS ORDERED: miSOPROStoL 200 MCG TAB PO PRN (04:47)
[2024-07-10] MEDS ORDERED: LIDOCAINE 0.5% (PF) 5 MG/ML (50 ML SDV) SQ PRN (04:47)
[2024-07-10] MEDS ORDERED: CARBOPROST TROMETHAMINE 250 MCG/ML 1 ML AMP IM PRN (04:47)
[2024-07-10] MEDS ORDERED: METHYLERGONOVINE 0.2 MG/ML 1 ML AMP IM PRN (04:47)
[2024-07-10] MEDS ORDERED: miSOPROStoL 200 MCG TAB RECTAL PRN (04:47)
[2024-07-10] MEDS ORDERED: ZOLPIDEM 5 MG TAB PO PRN (05:10)
[2024-07-10] MEDS ORDERED: LANOLIN CREAM 1 GM TUBE TOPICAL PRN (05:10)
[2024-07-10] MEDS ORDERED: BENZOCAINE/MENTHOL SPRAY 1 GM/SPRAY AEROSOL TOPICAL PRN (05:10)
[2024-07-10] MEDS ORDERED: diphenhydrAMINE 50 MG CAP PO PRN (05:10)
[2024-07-10] MEDS ORDERED: diphenhydrAMINE 50 MG/ML 1 ML VIAL IVP PRN ×2 (05:10)
[2024-07-10] MEDS ORDERED: SIMETHICONE 80 MG CHEWABLE PO PRN (05:10)
[2024-07-10] MEDS ORDERED: HYDROCORTISONE 2.5% RECTAL CREAM 30 GM TUBE RECTAL PRN (05:10)
[2024-07-10] MEDS ORDERED: diphenhydrAMINE 25 MG CAP PO PRN (05:10)
[2024-07-10] MEDS: OXYTOCIN 10 UNIT/ML 1 ML VIAL IM PRN (05:11)
[2024-07-10] MEDS: LACTATED RINGERS 1,000 ML IV SCH (05:11)
--- NOTE | 2024-07-10 05:17 | P.HPOB ---
History of Present Illness H&P Date: 07/10/24 Chief Complaint: Active labor at term The patient is a 29-year-old 3 para 2-0-0-2 who presents to the hospital at 38-5/7 weeks in active labor completely dilated with a bulging bag of water. heart tones are reassuring with a category 1 heart rate tracing. Her has been essentially uncomplicated and group B strep status is negative. Obstetrical history: 3 para 2-0-0-2 with 2 term vaginal deliveries without complications. Current statistics are listed in history of present illness. EDC of 07/12/2024 was established by last menstrual period and confirmed by second trimester ultrasound. Laboratory workup demonstrates a blood type of O+ with a negative antibody screen for. Rubella status is immune. The remainder of the laboratory workup is within normal limits. Early Glucola and second trimester Glucola were normal and group B strep status is negative. Gynecologic history: Unremarkable with no history of any infections to include STDs. Review of Systems Review of systems is confined to history of present illness. Past Medical History Additional Past Medical History / Comment(s): SCOLIOSIS, HX OF PASSING OUT., OCCASIONAL DIZZINESS, STATES CURRENTLY ON IRON SUPPLEMENT FOR ANEMIA. anxiety History of Any Multi-Drug Resistant Organisms: None Reported Past Surgical History: No Surgical Hx Reported Additional Past Surgical History / Comment(s): removal of left fallopian tube during current 04/24 Past Anesthesia/Blood Transfusion Reactions: No Reported Reaction Additional Past Anesthesia/Blood Transfusion Reaction / Comment(s): has not ever had anesthesia Past Psychological History: ADD/ADHD, Depression Additional Psychological History / Comment(s): NO MEDS WHILE Smoking Status: Never smoker Past Alcohol Use History: None Reported Past Drug Use History: None Reported - Past Family History Mother Family Medical History: No Reported History Sister(s) Family Medical History: Cancer Additional Family Medical History / Comment(s): thyroid cancer Medications and Allergies Home Medications Medication Instructions Recorded Confirmed Type Pnv No.95/Ferrous Fum/Folic AC 1 each PO DAILY 06/14/17 07/10/24 History [ Multivitamin Tablet] Desvenlafaxine Succinate [Pristiq] 1 tab PO DAILY 04/27/24 07/10/24 History Allergies Allergy/AdvReac Type Severity Reaction Status Date / Time No Known Allergies Allergy Verified 07/10/24 04:32 Exam Vital Signs Temp Pulse Resp BP Pulse Ox 07/10/24 04:56 97.2 F L 85 16 134/90 98 07/10/24 04:30 97.2 F L 85 16 134/90 98 Intake and Output 07/09/24 07/09/24 07/10/24 14:59 22:59 06:59 Other: Weight 127.006 kg Physical examination is done after delivery as I arrived postdelivery. The patient is a well-developed, mild to moderately obese white female in no acute distress. Her heart has a regular rhythm and rate without murmur. Her lungs are clear to auscultation bilaterally in all campa. Her abdomen is nondistended, soft, nontender, and without any masses aside from uterine fundus below the umbilicus consistent with status. Her extremities are without any cyanosis, clubbing, or edema and are nontender to palpation. She arrived to complete with a bulging bag of water and delivered shortly thereafter in the presence of the nurses. At the time of my exam, there is no evidence of any lacerations the perineum, vagina, or cervix. Assessment and Plan (1) Precipitous delivery Current Visit: Yes Status: Acute Code(s): O62.3 - PRECIPITATE LABOR SNOMED Code(s): 17436282 Plan: The patient has been delivered in triage by the nursing staff in the absence of a physician. She will be admitted to the hospital for care. The infant initially was taken to the nursery but appears stable at this time. Routine care.
--- NOTE | 2024-07-10 05:19 | P.PROBDLV ---
Vaginal Delivery Note - . Vaginal Delivery Note: The patient is a 29-year-old 3 para 2-0-0-2 who presented to the to triage at 38-5/7 weeks by good dating parameters in active labor completely dilated with a bulging bag of water. Her was uncomplicated and group B strep status is negative. On labor delivery, all signs were reassuring with a category 1 heart rate tracing. She proceeded to deliver precipitously in triage in my absence and subsequently delivered the placenta 1 minute later. I arrived following this at which time the fundus was firm and inspection of the the perineum, vagina, and cervix demonstrated no evidence of lacerations. Estimated blood loss for the case appeared to be approximately 100 mL. There were no complications aside from the precipitous nature of the delivery. She was delivered of a viable 7 pound 12 ounce baby girl with Apgars of 7 at 1 minute and 9 at 5 minutes though the infant was taken to the nursery initially but appears to be stable at this time. Both mother and are currently resting comfortably in recovery.
[2024-07-10 05:53] LABS: Anisocytosis Slight; Basophils % (A) 0 %; Eosinophils # (A) 0.1 k/uL (0-0.7); Eosinophils % (A) 1 %; HCT 29.7 % (34.0-46.0); HGB 9.4 gm/dL (11.4-16.0); Hypochromasia Moderate; Lymphocytes # (A) 1.6 k/uL (1.0-4.8); Lymphocytes % (A) 15 %; MCH 26.2 pg (25.0-35.0); MCHC 31.8 g/dL (31.0-37.0); MCV 82.5 fL (80.0-100.0); Mean Platelet Volume 8.1; Monocytes # (A) 0.5 k/uL (0-1.0); Monocytes % (A) 5 %; Neutrophils # (A) 8.2 k/uL (1.3-7.7); Neutrophils % (A) 78 %; Platelet Count 177 k/uL (150-450); WBC 10.6 k/uL (3.8-10.6)
[2024-07-10] MEDS: IBUPROFEN 800 MG TAB PO PRN (06:38)
[2024-07-10] MEDS: SENNOSIDES-DOCUSATE SODIUM 1 EACH TAB PO SCH (08:13)
[2024-07-10] MEDS: ACETAMINOPHEN TAB 500 MG TAB PO PRN (18:33)
[2024-07-11 06:59] LABS: Anisocytosis Slight; Basophils % (A) 0 %; Eosinophils # (A) 0.1 k/uL (0-0.7); Eosinophils % (A) 1 %; HGB 8.9 gm/dL (11.4-16.0); Hypochromasia Moderate; Lymphocytes # (A) 1.8 k/uL (1.0-4.8); Lymphocytes % (A) 21 %; MCH 26.2 pg (25.0-35.0); MCHC 31.8 g/dL (31.0-37.0); MCV 82.5 fL (80.0-100.0); Mean Platelet Volume 8.5; Monocytes # (A) 0.4 k/uL (0-1.0); Monocytes % (A) 5 %; Neutrophils % (A) 70 %; Platelet Count 185 k/uL (150-450); Poikilocytosis Slight; RDW 16.4 % (11.5-15.5); WBC 8.6 k/uL (3.8-10.6)
--- NOTE | 2024-07-11 09:05 | P.DS ---
Providers Date of admission: 07/10/24 04:42 Expected date of discharge: 07/11/24 Attending physician: Maria E Chao Primary care physician: Stated None - Discharge Diagnosis(es) (1) Precipitous delivery Current Visit: Yes Status: Acute (2) Normal vaginal delivery Current Visit: No Status: Acute Hospital Course: Pt presented in active labor. she had a precipitous delivery. PP course is uneventful. She denies nausea, vomiting, chest pain, shortness of breath or calf pain. She is ambulating voiding without difficulty. Her bleeding is minimal. She will be discharged home day #1 in stable condition to follow-up with me in 6 weeks. Plan - Discharge Summary New Discharge Prescriptions: New Ibuprofen [Motrin] 800 mg PO Q8HR PRN #30 tab PRN Reason: Pain No Action Pnv No.95/Ferrous Fum/Folic AC [ Multivitamin Tablet] 1 each PO DAILY Desvenlafaxine Succinate [Pristiq] 1 tab PO DAILY Discharge Medication List Pnv No.95/Ferrous Fum/Folic AC [ Multivitamin Tablet] 1 each PO DAILY 06/14/17 [History] Desvenlafaxine Succinate [Pristiq] 1 tab PO DAILY 04/27/24 [History] Ibuprofen [Motrin] 800 mg PO Q8HR PRN #30 tab 07/11/24 [Rx] Follow up Appointment(s)/Referral(s): Maria E Chao DO [Doctor of Osteopathic Medicine] - 6 Weeks (6 weeks follow up appt 08/22/2024 11:45am ) Discharge Disposition: HOME SELF-CARE
[2024-07-11 10:12] VITALS: BP 122/79; PULSE 79; RESP 18; TEMP 98.1
== END 2024-07-11 13:00 | disposition home or self-care (01) | DRG 560 ==
LOC: FBPOP 04:27 → 4FBP 04:42
PROVIDERS: ADMIT Obstetrics & Gynecology; ATTEND Obstetrics & Gynecology
PROC: 10E0XZZ Delivery of Products of Conception, External Approach (ICD-10-PCS; principal; 2024-07-10)
DX: O62.3 Precipitate labor (principal); Z37.0 Single live birth; O99.344 Other mental disorders complicating childbirth; D50.9 Iron deficiency anemia, unspecified; F32.A Depression, unspecified; O99.02 Anemia complicating childbirth; F90.9 Attention-deficit hyperactivity disorder, unspecified type; Z3A.38 38 weeks gestation of pregnancy; Z79.899 Other long term (current) drug therapy; Z90.79 Acquired absence of other genital organ(s); Z87.59 Personal history of other complications of pregnancy, childbirth and the puerperium
CPT/HCPCS: 85025; 86850; 86900; 86901; 99213